=== PATIENT | female | born 1970 | race Caucasian/White ===

== ENCOUNTER 2017-11-29 19:10 | Emergency (ER) | payer OTHER ==
[~2017-11-29] VITALS: Ht 160 cm; Wt 75.0 kg
[2017-11-29 19:15] VITALS: BP 169/93; PULSE 75; RESP 18; TEMP 97.5; O2SAT 98
[2017-11-29] MEDS ORDERED: KETOROLAC TROMETHAMINE 60 MG/2 ML (IM) VIAL IM ONE (22:00)
[2017-11-29] MEDS ORDERED: DEXAMETHASONE SOD PHOS 4 MG/ML VIAL IM ONE (22:00)
[2017-11-29] MEDS ORDERED: ROBA750T PO (22:04)
[2017-11-29] MEDS ORDERED: PRED20 PO (22:04)
[2017-11-29] MEDS ORDERED: ZANT300T PO (22:04)
[2017-11-29] MEDS ORDERED: TRAM50 PO (22:04)
--- NOTE | 2017-11-29 22:04 | PD ---
HPI Chief Complaint: ENT Complaint Time Seen by Provider: 21:47 Travel History International Travel<30 days: No Contact w/Intl Traveler<30days: No Traveled to known affect area: No History of Present Illness HPI 47-year-old female complains of right-sided neck pain, right ear pain, right shoulder pain. Patient states the pain started at the neck area radiating to the right side of face right ear and right shoulder pad and right shoulder. Patient states that the symptoms started 2 days ago. Patient states the pain is burning pain sharp pain. Patient states that the pain is worse with neck movement. Patient states the pain is worse with right arm movement. Patient denies any fever chills. Patient denies any coughing congestion. Patient took Tylenol with codeine without much relief of the pain. Patient denies any injury. Patient denies any neck problem in the past. On a scale of 1-10 the pain is an 8. PFSH Past Medical History Diminished Hearing: No Hypertension: Yes Tetanus Vaccination: < 5 Years Influenza Vaccination: No ?: Not LMP: 11/13/2017 Tubal Ligation: Yes Past Surgical History Gynecologic Surgery: Yes (tubial ligation) Tonsillectomy: Yes Other Surgery: Yes (beast augmentation) Social History Alcohol Use: Yes (occasionally) Tobacco Use: No Substance Use: No Allergies-Medications (Allergen,Severity, Reaction): Coded Allergies: Sulfa (Sulfonamide Antibiotics) (Verified Allergy, Severe, 11/29/17) rash Review of Systems General / Constitutional: No: Fever Eyes: No: Visual changes HENT: Positive: Neck Pain, No: Headaches Cardiovascular: No: Chest Pain or Discomfort Respiratory: No: Shortness of Breath Gastrointestinal: No: Abdominal Pain Genitourinary: No: Dysuria Musculoskeletal: No: Pain Skin: No Rash Neurologic: No: Weakness Psychiatric: No: Depression Endocrine: No: Polydipsia Hematologic/Lymphatic: No: Easy Bruising Physical Exam Narrative GENERAL: Well-nourished, well-developed patient. SKIN: Focused skin assessment warm/dry. HEAD: Normocephalic. EYES: No scleral icterus. No injection or drainage. TM: Clear. Throat: Nonerythematous. NECK: Supple, trachea midline. No JVD or lymphadenopathy. Patient has moderate tenderness on palpation right side paraspinal area cervical spine. No midline tenderness. No meningismus. CARDIOVASCULAR: Regular rate and rhythm without murmurs, gallops, or rubs. RESPIRATORY: Breath sounds equal bilaterally. No accessory muscle use. GASTROINTESTINAL: Abdomen soft, non-tender, nondistended. MUSCULOSKELETAL: No cyanosis, or edema. Patient has moderate tenderness to palpation right shoulder pad area. No redness no swelling no rash noted. Tenderness on the superior aspect the right shoulder is reproduced on range of motion of the right shoulder. BACK: Nontender without obvious deformity. No CVA tenderness. Neurologic exam normal. Data Data Last Documented VS Vital Signs Date Time Temp Pulse Resp B/P (MAP) Pulse Ox O2 Delivery O2 Flow Rate FiO2 11/29/17 19:15 97.5 75 18 169/93 (118) 98 Orders Orders Ketorolac Inj (Toradol Inj) (11/29/17 22:00) Dexamethasone Inj (Decadron Inj) (11/29/17 22:00) [facility] Medical Decision Making Medical Screen Exam Complete: Yes Emergency Medical Condition: Yes Differential Diagnosis Differential diagnosis including neuralgia, bursitis, tendinitis, muscle spasm. Narrative Course 47-year-old female with right-sided neck pain with radiation the right side the face and right shoulder. Nontraumatic. Decadron 8 mg IM. Toradol 60 mg IM. Diagnosis Primary Impression: Cervical radiculopathy Patient Instructions: General Instructions Additional Instructions: Take medications as directed. Follow-up with personal physician. Return if worse. Med/Other Pt SpecificInfo: Prescription(s) given Scripts Ranitidine (Zantac) 300 Mg Tab 300 MG PO DAILY, #10 TAB 0 Refills Prov: Blade Buchanan MD 11/29/17 Methocarbamol (Robaxin) 750 Mg Tab 750 MG PO QID for Muscle Spasm, #40 TAB 0 Refills Prov: Blade Buchanan MD 11/29/17 Prednisone (Prednisone) 20 Mg Tab 20 MG PO BID, #14 TAB 0 Refills Prov: Blade Buchanan MD 11/29/17 Tramadol (Ultram) 50 Mg Tab 50 MG PO Q6H Y for PAIN, #20 TAB 0 Refills Prov: Blade Buchanan MD 11/29/17 Disposition: 01 DISCHARGE HOME Condition: Stable Blade Buchanan MD Nov 29, 2017 22:04
== END 2017-11-30 01:57 | disposition home or self-care (01) ==
LOC: NEPD 19:10
DX: M54.12 Radiculopathy, cervical region (principal); I10 Essential (primary) hypertension
CPT/HCPCS: 96372; 99283; J1100; J1885